=== PATIENT | female | born 1960 | race Caucasian/White ===

== ENCOUNTER 2022-09-04 13:32 | Emergency (ER) | payer OTHER ==
[~2022-09-04] VITALS: Ht 167.6 cm; Wt 52.2 kg
--- NOTE | 2022-09-04 13:39 | NUR ---
[id number] AND [employer] UNIT#9A53 FOR PSYCH EVAL, PER [employer], NEIGHBOR CALLED BECAUSE PATIENT WAS SCREAMING, NOTED WITH SUPERFICIAL CUTS ON LEFT FOOT
[2022-09-04 14:30] LABS: BASOPHILS # (AUTO) 0.1 K/uL (0.0-0.2); BASOPHILS % (AUTO) 0.7 % (0.0-2.0); EOSINOPHILS % (AUTO) 2.5 % (0.0-6.0); HEMATOCRIT 42 % (33-45); HEMOGLOBIN 13.8 g/dL (11.5-14.8); LYMPHOCYTES # (AUTO) 1.6 K/uL (0.8-4.8); LYMPHOCYTES % (AUTO) 18.6 % (20.0-44.0); MEAN CORPUSCULAR HGB CONC 33 g/dl (31.0-36.0); MEAN CORPUSCULAR VOLUME 90 fL (82-100); MONOCYTES # (AUTO) 0.9 K/uL (0.1-1.30); MONOCYTES % (AUTO) 10.5 % (2.0-12.0); NEUTROPHILS # (AUTO) 5.9 K/uL (1.8-8.9); NEUTROPHILS % (AUTO) 67.7 % (43.0-81.0); PLATELET COUNT (AUTO) 352 K/uL (150-450); RED BLOOD CELL COUNT(AUTO) 4.63 MIL/uL (4.0-5.2); WHITE BLOOD COUNT (AUTO) 8.7 K/uL (4.3-11.0)
[2022-09-04 14:51] LABS: ALANINE AMINOTRANSFERASE 269 U/L (12-78); ALBUMIN 3.3 g/dL (3.4-5.0); ALCOHOL, BLOOD < 3 mg/dL (0-0); ALKALINE PHOSPHATASE 137 U/L (46-116); ASPARTATE AMINOTRANSFERASE 47 U/L (15-37); BILIRUBIN,DIRECT 0.1 mg/dL (0.0-0.2); BILIRUBIN,TOTAL 0.3 mg/dL (0.2-1.0); CALCIUM, SERUM 9.1 mg/dL (8.5-10.1); CARBON DIOXIDE 30 mmol/L (21-32); CHLORIDE 108 mmol/L (98-107); CREATININE 0.8 mg/dL (0.6-1.3); GLUCOSE 95 mg/dL (74-106); POTASSIUM 4.4 mmol/L (3.5-5.1); SODIUM SERUM 143 mmol/L (136-145); TOTAL PROTEIN, SERUM 7.3 g/dL (6.4-8.2); UREA NITROGEN, BLOOD 28 mg/dL (7-18)
--- NOTE | 2022-09-04 14:51 | NUR ---
[employer] 5150 HOLD EFF 1422
[2022-09-04 14:58] LABS: ACETAMINOPHEN 0 ug/ml (10-30)
[2022-09-04 15:26] LABS: BILIRUBIN,URINE SMALL (NEGATIVE); COLOR,URINE YELLOW (YELLOW); LEUKOCYTE ESTERASE ,URINE NEGATIVE (NEGATIVE); NITRITE, URINE NEGATIVE (NEGATIVE); PH,URINE 5.5 (5.0-8.0); PROTEIN,URINE NEGATIVE (NEGATIVE); UGLUCOSE NEGATIVE (NEGATIVE); UROBILINOGEN,URINE 0.2 EU/dL (0.2)
[2022-09-04 16:35] LABS: BACTERIA,URINE Few /HPF (None Seen); WBC,URINE 0-2 /HPF (0-3)
[2022-09-04 16:36] LABS: SQUAMOUS EPITHELIAL CELL,UR Few /HPF (None Seen)
[2022-09-04 16:40] LABS: CALCIUM OXALATE CRYSTALS,UR Rare /HPF (None Seen)
--- NOTE | 2022-09-04 18:45 | NUR ---
COVID SWAB DONE AND SENT TO LAB
--- NOTE | 2022-09-04 21:43 | NUR ---
CALLED [facility], STATES ON THE WAY
[2022-09-04] MEDS ORDERED: OLANZAPINE 5 MG TABLET PO ONE (23:00)
[2022-09-04] MEDS ORDERED: risperiDONE 1 MG TABLET ONE (23:38)
[2022-09-04] MEDS: risperiDONE 0.25 MG TABLET PO ONE (23:41)
[2022-09-05] MEDS ORDERED: risperiDONE 1 MG TABLET ONE ×2 (05:07→18:33)
[2022-09-05] MEDS: risperiDONE 0.25 MG TABLET PO ONE ×2 (05:11→18:35)
[2022-09-05] MEDS ORDERED: diphenhydrAMINE HCL 50 MG/ML VIAL ONE (05:27)
[2022-09-05] MEDS ORDERED: LORAZEPAM INJ 2 MG/ML VIAL ONE (05:28)
[2022-09-05] MEDS: LORAZEPAM INJ 2 MG/ML VIAL IM ONE (05:37)
--- NOTE | 2022-09-05 11:05 | NUR ---
PATIENT AWAKE ALERT, COOPERATIVE AND CALM, RESPONDING TO QUESTIONS.
[2022-09-05] MEDS ORDERED: LORAZEPAM 1 MG TABLET ONE (18:33)
[2022-09-05] MEDS: LORAZEPAM 1 MG TABLET PO ONE (18:35)
--- NOTE | 2022-09-05 19:48 | NUR ---
PER ONIEL LOONEY, HOLD NEEDS TO BE BROKEN IN ORDER TO ADMIT HER ALLOW VOLUN. ADMIT TO KIARRA
--- NOTE | 2022-09-06 08:47 | NUR ---
FAXED CLINICALS TO [facility].
--- NOTE | 2022-09-06 10:24 | NUR ---
SPOKE WITH WILIAN FROM [facility] INTAKE. PATIENT ALREADY ACCEPTED AND AWAITING FOR AVAILABLE BED AT [facility]. PRIMARY RN AWARE.
--- NOTE | 2022-09-06 10:35 | NUR ---
Back Tender [employer] Note SW faxed note to [facility] intake ( ) that states that pt. is no longer on hold.
--- NOTE | 2022-09-06 12:51 | NUR ---
PT ACCEPTED TO [facility] UNDER [address]. PACHECO CALL [phone] FOR REPORT PER JI.
--- NOTE | 2022-09-06 12:54 | NUR ---
[facility] CALLED FOR TRANSPORT ETA 1430 PER AVA.
--- NOTE | 2022-09-06 14:15 | NUR ---
REPORT GIVEN TO RICCI [place] [phone] FOR RONNIE
--- NOTE | 2022-09-06 16:30 | NUR ---
PATIENT WAS TAKEN BY [facility] STAFF FOR TRANSFER TO [facility] IN STABLE, CALM, COOPERATIVE CONDITION.
[2022-09-06 19:29] VITALS: BP 110/60
== END 2022-09-06 16:30 ==
LOC: ER 13:35
DX: F29 Unspecified psychosis not due to a substance or known physiological condition (principal); F20.9 Schizophrenia, unspecified; Z88.0 Allergy status to penicillin; Z88.8 Allergy status to other drugs, medicaments and biological substances; R74.01 Elevation of levels of liver transaminase levels; Z20.822 Contact with and (suspected) exposure to COVID-19
CPT/HCPCS: 99285; 85025; 80048; 80076; 81001; 36415; 87426; 80143; 80320; 80307; C9803; J2060; G0480; J1200